=== PATIENT | male | born 1955 | race Two or more races ===

== ENCOUNTER 2017-05-25 13:28 | Emergency (ER) | payer OTHER ==
[~2017-05-25] VITALS: Ht 170.2 cm; Wt 79.4 kg
[2017-05-25 13:40] VITALS: BP 117/71
[2017-05-25 14:30] LABS: BASOPHILS % (AUTO) 0.3 % (0.0-2.0); LYMPHOCYTES % (AUTO) 9.9 % (20.0-45.0); MEAN CORPUSCULAR HEMOGLOBIN 31.6 PG (27.0-31.0); MEAN CORPUSCULAR HGB CONC 33.8 G/DL (32.0-36.0); MEAN CORPUSCULAR VOLUME 93 FL (80-99); MONOCYTES % (AUTO) 6.9 % (1.0-10.0); NEUTROPHILS % (AUTO) 82.8 % (45.0-75.0); PLATELET COUNT 236 K/UL (150-450); RED BLOOD COUNT 5.38 M/UL (4.70-6.10); RED CELL DISTRIBUTION WIDTH 11.3 % (11.6-14.8); WHITE BLOOD COUNT 13.9 K/UL (4.8-10.8)
[2017-05-25 14:37] LABS: PROTHROMBIN TIME 10.6 SEC (9.30-11.50)
[2017-05-25 14:41] LABS: APPEARANCE,URINE CLEAR; KETONES,URINE NEGATIVE (NEGATIVE); LEUKOCYTE ESTERASE ,URINE NEGATIVE (NEGATIVE); NITRITE,URINE NEGATIVE (NEGATIVE); PH,URINE 6.5 (4.5-8.0); PROTEIN,URINE NEGATIVE (NEGATIVE); UROBILINOGEN,URINE NORMAL MG/DL (0.0-1.0)
[2017-05-25 14:42] LABS: ANION GAP 6 mmol/L (5-15); CALCIUM 8.9 MG/DL (8.5-10.1); CARBON DIOXIDE 30 MMOL/L (21-32); CHLORIDE 102 MMOL/L (98-107); CREATININE 1.3 MG/DL (0.55-1.30); GLOMERULAR FILTRATION RATE 55.9 mL/min (>60); POTASSIUM 3.8 MMOL/L (3.5-5.1); SODIUM 138 MMOL/L (136-145)
[2017-05-25 14:48] LABS: ALANINE AMINOTRANSFERASE 26 U/L (12-78); ALBUMIN/GLOBULIN RATIO 0.9 (1.0-2.7); ASPARTATE AMINO TRANSFERASE 23 U/L (15-37); LIPASE 71 U/L (73-393); TOTAL PROTEIN 7.3 G/DL (6.4-8.2)
[2017-05-25 14:51] LABS: BACTERIA,URINE OCCASIONAL /HPF; SQUAMOUS EPITHELIAL CELL,UR OCCASIONAL /LPF (NONE/OCC); WBC,URINE 0-2 /HPF (0 - 0)
--- NOTE | 2017-05-25 15:22 | Diagnostic Imaging Report ---
Indication: PAIN abdominal pain, nausea vomiting for a few days Technique: Spiral acquisitions obtained through the abdomen and pelvis. No oral contrast utilized, per emergency room physician request No IV contrast utilized, due to history of prior contrast reaction. Multiplanar Reconstructions were generated. Total dose length product 841 mGycm. CTDIvol(s) 13 mGy. Dose reduction achieved using automated exposure control Comparison: None Findings: There is a 6 x 7 mm calculus in the distal left ureter about a centimeter proximal to the ureterovesical junction. There is resultant mild left hydroureter, moderate left hydronephrosis. There is perinephric fat stranding. No intrarenal calculi are demonstrated. Right renal or calculi or right hydronephrosis or hydroureter demonstrated. Lack of IV contrast limits assessment of the renal parenchyma. No gross renal parenchymal mass or cyst demonstrated. The bladder wall appears somewhat thickened, although this could be an artifact of under distention. Lack of IV contrast limits assessment of the other solid organs. The liver, gallbladder, bile ducts, pancreas, spleen, adrenals are unremarkable. No retroperitoneal or mesenteric mass or adenopathy. No pelvic mass or adenopathy. Normal appendix. Metallic foreign body appears attached to the wall of the transverse colon, could be ingested or could represent an endoscopic clips. No evidence of diverticulosis or diverticulitis. No small bowel distention or small bowel wall thickening. No free or loculated intraperitoneal air or fluid is evident. The included lung bases demonstrate basilar atelectatic changes. The bones are unremarkable. Impression: Positive for 6 x 7 mm distal left ureteral calculus. Resultant hydroureter, hydronephrosis, and perinephric fat stranding Equivocal bladder wall thickening, likely an artifact of under distention but if real could indicate cystitis Transverse colon metallic foreign body, possibly an endoscopic clip versus ingested foreign body The CT scanner at [facility] is accredited by the [employer] and the scans are performed using protocols designed to limit radiation exposure to as low as reasonably achievable to attain images of sufficient resolution adequate for diagnostic evaluation.
[2017-05-25] MEDS ORDERED: cefTRIAXone 1 GM in NS 55 ML IVPB ONE (15:45)
[2017-05-25] MEDS ORDERED: Morphine Sulfate 4mg/ml Inj IVP ONE (15:45)
--- NOTE | 2017-05-25 18:11 | Emergency Room Report ---
History of Present Illness General Chief Complaint: Vomiting Source: Patient, Family Member Present Illness HPI The patient is a 62-year-old male presenting for abdominal pain, nausea, and vomiting. He states that symptoms began approximately 2 weeks prior and have been on and off. Pain is an 8/10 sharp sensation primarily to the left lower abdomen. Occasionally radiates to left lower back. No known provoking or relieving factors. He admits to history of prostate cancer with prostatectomy one year prior. No known complications. He denies any other symptoms including fever, chills, constipation, diarrhea, CP , SOB Allergies: Coded Allergies: IODINE (Verified Allergy, Severe, Hives, 05/25/17) Patient History Past Medical History: see triage record Past Surgical History: other - prostatectomy Pertinent Family History: none Reviewed Nursing Documentation: PMH: Agreed, PSxH: Agreed Nursing Documentation-PMH Past Medical History: No History, Except For Hx Cancer: Yes - prostate with surgery Review of Systems All Other Systems: negative except mentioned in HPI Physical Exam Vital Signs Date Time Temp Pulse Resp B/P (MAP) Pulse Ox O2 Delivery O2 Flow Rate FiO2 05/25/17 13:31 97.9 64 18 117/71 98 Room Air Sp02 EP Interpretation: reviewed, normal General Appearance: no apparent distress, alert, GCS 15, non-toxic Head: normocephalic, atraumatic Eyes: bilateral eye normal inspection, bilateral eye PERRL ENT: hearing grossly normal, normal pharynx, no angioedema, normal voice Neck: full range of motion, supple/symm/no masses Respiratory: chest non-tender, lungs clear, normal breath sounds, speaking full sentences Cardiovascular #1: regular rate, rhythm, no edema Gastrointestinal: normal bowel sounds, soft, non-distended, no guarding, no rebound, tenderness - LLQ Rectal: deferred Genitourinary: normal inspection, CVA tenderness (L) Musculoskeletal: back normal, gait/station normal, normal range of motion, non- tender Neurologic: alert, oriented x3, responsive, motor strength/tone normal, sensory intact, speech normal Psychiatric: judgement/insight normal, memory normal, mood/affect normal, no suicidal/homicidal ideation Skin: normal color, no rash, warm/dry, well hydrated Medical Decision Making PA Attestation Dr. Green is my supervising physician. Patient management was discussed with my supervising physician Diagnostic Impression: Primary Impression: Hydronephrosis with renal calculous obstruction ER Course The patient is a 62-year-old male presenting for abdominal pain, nausea, and vomiting Differential diagnoses considered include but not limited to diverticulitis, kidney stone, gastritis, pancreatitis, appendicitis PE: Vitals WNL. NAD. Abdomen: Normal appearance. Non distended. No ecchymosis. Normal BS. TTP over the LLQ. No McBurney point tenderness. No guarding. L CVA tenderness CBC shows leukocytosis CMP: BUN of 25, Cr 1.3 UA: + for blood, no signs of infection 6x7mm distal L ureteral calculus with hydroureter, hydronephrosis, and perinephric fat stranding The patient is given IV fluids and pain medication and is feeling better. He will be admitted in stable but serious condition. I have spoken with Dr. Tae Chapman who has accepted the patient and he will be transferred to [facility]. Pt agrees with plan Laboratory Tests Test 05/25/17 14:00 05/25/17 14:30 White Blood Count 13.9 K/UL (4.8-10.8) H Red Blood Count 5.38 M/UL (4.70-6.10) Hemoglobin 17.0 G/DL (14.2-18.0) Hematocrit 50.2 % (42.0-52.0) Mean Corpuscular Volume 93 FL (80-99) Mean Corpuscular Hemoglobin 31.6 PG (27.0-31.0) H Mean Corpuscular Hemoglobin Concent 33.8 G/DL (32.0-36.0) Red Cell Distribution Width 11.3 % (11.6-14.8) L Platelet Count 236 K/UL (150-450) Mean Platelet Volume 8.0 FL (6.5-10.1) Neutrophils (%) (Auto) 82.8 % (45.0-75.0) H Lymphocytes (%) (Auto) 9.9 % (20.0-45.0) L Monocytes (%) (Auto) 6.9 % (1.0-10.0) Eosinophils (%) (Auto) 0.0 % (0.0-3.0) Basophils (%) (Auto) 0.3 % (0.0-2.0) Prothrombin Time 10.6 SEC (9.30-11.50) Prothrombin Time INR 1.0 (0.9-1.1) PTT 28 SEC (23-33) Sodium Level 138 MMOL/L (136-145) Potassium Level 3.8 MMOL/L (3.5-5.1) Chloride Level 102 MMOL/L (98-107) Carbon Dioxide Level 30 MMOL/L (21-32) Anion Gap 6 mmol/L (5-15) Blood Urea Nitrogen 25 mg/dL (7-18) H Creatinine 1.3 MG/DL (0.55-1.30) Estimate Glomerular Filtration Rate 55.9 mL/min (>60) Glucose Level 107 MG/DL (74-106) H Calcium Level 8.9 MG/DL (8.5-10.1) Total Bilirubin 0.8 MG/DL (0.2-1.0) Aspartate Amino Transferase (AST) 23 U/L (15-37) Alanine Aminotransferase (ALT) 26 U/L (12-78) Alkaline Phosphatase 107 U/L (46-116) Total Protein 7.3 G/DL (6.4-8.2) Albumin 3.5 G/DL (3.4-5.0) Globulin 3.8 g/dL Albumin/Globulin Ratio 0.9 (1.0-2.7) L Lipase 71 U/L (73-393) L Urine Color Pale yellow Urine Appearance Clear Urine pH 6.5 (4.5-8.0) Urine Specific [place] 1.005 (1.005-1.035) Urine Protein Negative (NEGATIVE) Urine Glucose (UA) Negative (NEGATIVE) Urine Ketones Negative (NEGATIVE) Urine Occult Blood 3+ (NEGATIVE) H Urine Nitrite Negative (NEGATIVE) Urine Bilirubin Negative (NEGATIVE) Urine Urobilinogen Normal MG/DL (0.0-1.0) Urine Leukocyte Esterase Negative (NEGATIVE) Urine RBC 2-4 /HPF (0 - 0) H Urine WBC 0-2 /HPF (0 - 0) Urine Squamous Epithelial Cells Occasional /LPF Urine Bacteria Occasional /HPF (NONE) Lab Results Impression CBC shows leukocytosis CMP: BUN of 25, Cr 1.3 UA: + for blood, no signs of infection CT/MRI/US Diagnostic Results CT/MRI/US Diagnostic Results : Imaging Test Ordered: CT abd/pelvis Impression 6x7mm distal L ureteral calculus with hydroureter, hydronephrosis, and perinephric fat stranding Last Vital Signs Date Time Temp Pulse Resp B/P (MAP) Pulse Ox O2 Delivery O2 Flow Rate FiO2 05/25/17 16:54 97.9 05/25/17 13:40 73 18 117/71 98 Room Air Status: improved Disposition: XFER SHT-TRM HOSP Condition: Serious Scripts No Active Prescriptions or Reported Meds Referrals: [facility],REFERRING (PCP) FITO WAKEFIELD May 25, 2017 18:11
[2017-05-25 18:57] VITALS: BP 118/70
[2017-05-25 19:47] VITALS: BP 117/77
[2017-05-25 20:50] VITALS: BP 117/77
== END 2017-05-25 20:50 | disposition short-term general hospital (02) ==
LOC: EMR 14:05
DX: N13.2 Hydronephrosis with renal and ureteral calculous obstruction (principal); Z85.46 Personal history of malignant neoplasm of prostate; Z90.79 Acquired absence of other genital organ(s); Z91.041 Radiographic dye allergy status
CPT/HCPCS: 36415; 74176; 80053; 81003; 83690; 85025; 85610; 85730; 96361; 96365; 96366; 99285; J0696; J2270; J2405

== ENCOUNTER 2017-06-24 17:49 | Emergency (ER) | payer OTHER ==
[~2017-06-24] VITALS: Ht 170.2 cm; Wt 79.4 kg
[2017-06-24] MEDS ORDERED: CIPROFLOXACIN750 MG ORAL (18:02)
[2017-06-24] MEDS ORDERED: Tetanus/Diptheria/Pertussis Vaccine 0.5ml Syr IM ONE (18:15)
[2017-06-24] MEDS ORDERED: Lidocaine 1% MPF 10mg/ml 5ml INJ ONE (18:30)
[2017-06-24] MEDS ORDERED: Bacitracin Oint UD TOPIC ONE (18:30)
[2017-06-24] MEDS ORDERED: BACITRACIN-P28.35 GM TP (18:34)
[2017-06-24] MEDS ORDERED: CEPHALEXIN500 MG ORAL (18:34)
--- NOTE | 2017-06-24 18:34 | Emergency Room Report ---
History of Present Illness General Chief Complaint: Laceration Source: Patient, Family Member Present Illness HPI 62 YO Male presents to the ED c/o laceration to proximal left middle finger x 1 day, sustained this afternoon after falling onto sharp piece of metal. Last tetanus vaccination is unknown he estimates over 10 years. Patient denies taking blood thinning medications. Patient is pain is 0/10 in severity at this time he states that he has been able to control bleeding at this time. Denies numbness tingling or loss of sensation or gross motor movements of the extremities, incontinence of bowel or bladder. Denies CP, Palpitations, LOC, AMS , dizziness, Changes in Vision, Allergies: Coded Allergies: IODINE (Verified Allergy, Severe, Hives, 05/25/17) Patient History Past Medical History: see triage record Past Surgical History: none Pertinent Family History: none Reviewed Nursing Documentation: PMH: Agreed, PSxH: Agreed Nursing Documentation-PMH Hx Cancer: Yes - Prostate cancer with surgery in 2016. Review of Systems All Other Systems: negative except mentioned in HPI Physical Exam Vital Signs Date Time Temp Pulse Resp B/P (MAP) Pulse Ox O2 Delivery O2 Flow Rate FiO2 06/24/17 17:56 97.9 66 17 131/82 96 Room Air Sp02 EP Interpretation: reviewed, normal General Appearance: no apparent distress, alert, GCS 15, non-toxic Head: normocephalic, atraumatic Eyes: bilateral eye normal inspection, bilateral eye PERRL ENT: hearing grossly normal, normal voice Neck: full range of motion Respiratory: lungs clear, normal breath sounds, speaking full sentences Cardiovascular #1: regular rate, rhythm, normal capillary refill Musculoskeletal: back normal, gait/station normal, normal range of motion, non- tender Neurologic: alert, oriented x3, responsive, motor strength/tone normal, sensory intact, speech normal Psychiatric: memory normal Skin: normal color, no rash, warm/dry, well hydrated, laceration - linear proximal left middle finger laceration approx 3 cm in length- no obvious fb. Procedures Laceration/Wound Repair Laceration/Wound Repair : Consent: Verbal Wound Location: upper extremity - proximal left middle finger Wound's Depth, Shape: linear Wound Length (cm): 3 Wound Explored: clean Irrigated w/ Saline (ccs): 500 Betadine Prep?: Yes Anesthesia: 1% Lidocaine Volume Anesthetic (ccs): 5 Wound Repaired With: sutures Suture Size/Type: 4:0 Number of Sutures: 4 Layer Closure?: No Sterile Dressing Applied?: Yes Splint Applied?: Yes Type of Splint Applied: finger splint Sling Applied?: No Patient Tolerated: Well Complications: None Medical Decision Making PA Attestation Dr. tristan is my supervising Physician whom patient management has been discussed with. Diagnostic Impression: Primary Impression: Laceration ER Course Pt. presents to the ED c/o laceration to proximal left middle finger x 1 day, sustained this afternoon after falling onto sharp piece of metal. Last tetanus vaccination is unknown he estimates over 10 years. Patient denies taking blood thinning medications. Patient is pain is 0/10 in severity at this time he states that he has been able to control bleeding at this time. Denies numbness tingling or loss of sensation or gross motor movements of the extremities, incontinence of bowel or bladder. Denies CP, Palpitations, LOC, AMS, dizziness, Changes in Vision, Sensation, paresthesias, or a sudden severe headache. Ddx considered but are not limited to laceration, tendon injury, cellulitis, amputation Vital signs: are WNL, pt. is afebrile H&PE are most consistent with: linear proximal left middle finger laceration approx 3 cm in length- no obvious fb. ORDERS: none required at this time, the diagnosis is clinical ED INTERVENTIONS: -Tetanus vaccine was administered as pt. vaccination status was unknown. - The wound was copiously irrigated with normal saline, and explored for foreign body for which no FB was found. - pt. is anesthetized with 1%lidocaine- 5 cc - The wound was approximated and closed using 4 interrupted 4.0 Prolene sutures. -Bacitracin and sterile dressing is applied. - Left middle finger Splint applied by cytopathology technologist. Pt. remains neurovascularly intact. Discussed with patient: That we make every effort to approximate the laceration as best as we can so that scarring will be as cosmetically pleasing as possible with our limited cosmetic skill set in the Emergency dept. Regardless of our best efforts there will be scarring after laceration repair. The extent of scarring is unknown at this time. DISCHARGE: At this time pt. is stable for d/c to home. Will provide printed patient care instructions, and any necessary prescriptions. Care plan and follow up instructions have been discussed with the patient prior to discharge. Last Vital Signs Date Time Temp Pulse Resp B/P (MAP) Pulse Ox O2 Delivery O2 Flow Rate FiO2 06/24/17 17:56 97.9 66 17 131/82 96 Room Air Disposition: HOME, SELF-CARE Condition: Stable Scripts Bacitracin/Polymyxin B Sulfate (BACITRACIN-POLYMYXIN OINTMENT) 28.35 Gm Oint...g. 1 APPLIC TP BID, #28.3 GM Prov: Jannet Rivas 06/24/17 Cephalexin* (KEFLEX*) 500 Mg Capsule 500 MG ORAL EVERY 12 HOURS for 7 Days, #14 CAP 0 Refills Prov: Jannet Rivas 06/24/17 Patient Instructions: Laceration Care, Adult Additional Instructions: Take medications as directed. * SUTURE REMOVAL IN 10 Days* Follow up with a Primary Care Provider in 3-5 days, even if your symptoms have resolved. --Please review list of primary care clinics, if you do not already have a primary care provider Return sooner to ED if new symptoms occur, or current symptoms become worse. - Please note that this Emergency Department Report was dictated using [employer] Systemsm[employer]iple resaw operator technology software, occasionally this can lead to erroneous entry secondary to interpretation by the dictation equipment. Jannet Rivas Jun 24, 2017 18:34
[2017-06-24 19:36] VITALS: BP 131/82
== END 2017-06-24 19:22 | disposition home or self-care (01) ==
LOC: EMR 18:53
DX: S61.213A Laceration without foreign body of left middle finger without damage to nail, initial encounter (principal); W45.8XXA Other foreign body or object entering through skin, initial encounter; Y92.89 Other specified places as the place of occurrence of the external cause; Z23 Encounter for immunization; Z85.46 Personal history of malignant neoplasm of prostate
CPT/HCPCS: 12002; 90471; 90715; 99283; Z7502

== ENCOUNTER 2017-11-30 16:30 | Emergency (ER) | payer OTHER ==
[~2017-11-30] VITALS: Ht 167.6 cm; Wt 79.8 kg
[~2017-11-30 16:30] MED LIST: BACITRACIN-P28.35 GM TP; CEPHALEXIN500 MG ORAL; CIPROFLOXACIN750 MG ORAL
[2017-11-30 17:24] VITALS: BP 119/78
--- NOTE | 2017-11-30 17:39 | Emergency Room Report ---
History of Present Illness General Chief Complaint: Upper Respiratory Illness Source: Patient Present Illness HPI 62-year-old male presents to the emergency department complaining of persistent dry cough times one week with sore throat 4 days he denies fevers, chills, headaches. Patient also reports in the mornings he has significant phlegm that resolves after coughing it out. Patient reports some intermittent nasal congestion. Denies ear pain, high fevers, lethargy, neck pain/stiffness, irritability, photophobia dehydration, N/V/D. Denies Cp, Palpitations, LOC, AMS , seizures, paresthesias, or changes in Hearing or vision, no Sudden severe CORTÉS. Denies hx of smoking, asthma or COPD. Allergies: Coded Allergies: IODINE (Verified Allergy, Severe, Hives, 05/25/17) Patient History Past Medical History: see triage record Past Surgical History: none Pertinent Family History: none Reviewed Nursing Documentation: PMH: Agreed; PSxH: Agreed Nursing Documentation-PMH Past Medical History: No History, Except For Hx Cancer: Yes - Prostate cancer with surgery in 2016. Review of Systems All Other Systems: negative except mentioned in HPI Physical Exam Vital Signs Date Time Temp Pulse Resp B/P (MAP) Pulse Ox O2 Delivery O2 Flow Rate FiO2 11/30/17 16:45 98.7 63 20 119/78 94 Room Air 98.8 Sp02 EP Interpretation: reviewed, normal General Appearance: no apparent distress, alert, GCS 15, non-toxic Head: normocephalic, atraumatic ENT: hearing grossly normal, normal voice, TMs + canals normal, uvula midline, moist mucus membranes, pharyngeal erythema, other - no tonsillar swelling or exudates. Neck: full range of motion, no meningismus Respiratory: chest non-tender, lungs clear, normal breath sounds, no rhonchi, no respiratory distress, no wheezing, speaking full sentences Cardiovascular #1: regular rate, rhythm, no edema Gastrointestinal: non tender Musculoskeletal: back normal, gait/station normal, normal range of motion, non- tender Neurologic: alert, oriented x3, responsive, motor strength/tone normal, sensory intact, speech normal, grossly normal Psychiatric: judgement/insight normal Skin: normal color, no rash, warm/dry, well hydrated Lymphatic: no adenopathy Medical Decision Making PA Attestation Dr. Abdi is my supervising Physician whom patient management has been discussed with. Diagnostic Impression: Primary Impression: Upper respiratory infection Qualified Codes: J06.9 - Acute upper respiratory infection, unspecified Additional Impression: Pharyngitis, acute Qualified Codes: J02.9 - Acute pharyngitis, unspecified ER Course 62-year-old male presents to the emergency department complaining of persistent dry cough times one week with sore throat 4 days he denies fevers, chills, headaches. Patient also reports in the mornings he has significant phlegm that resolves after coughing it out. Patient reports some intermittent nasal congestion. Denies , ear pain, high fevers, lethargy, neck pain/stiffness, irritability, photophobia dehydration, N/V/D. Denies Cp, Palpitations, LOC, AMS , seizures, paresthesias, or changes in Hearing or vision, no Sudden severe CORTÉS. Denies hx of smoking, asthma or COPD. Ddx considered but are not limited to URI, pneumonia, PE, strep pharyngitis, meningitis. Vital signs: Pt. is afebrile, the remaining VS are WNL H&PE are most consistent with URI- no meningeal signs, no evidence of bacterial infection at this time. pharyngitis most likely secondary to PND. ORDERS: none required at this time, the diagnosis is clinical ED INTERVENTIONS: None required at this time. --PT. EDUCATION: Discussed antibiotic resistance with inappropriate prescribing of antibiotics for viral illnesses. Discussed signs and symptoms to indicate viral illness versus bacterial illness. DISCHARGE: At this time pt. is stable for d/c to home. Will provide printed patient care instructions, and any necessary prescriptions. Care plan and follow up instructions have been discussed with the patient prior to discharge. Last Vital Signs Date Time Temp Pulse Resp B/P (MAP) Pulse Ox O2 Delivery O2 Flow Rate FiO2 11/30/17 17:24 63 20 Room Air 11/30/17 17:24 98.8 119/78 94 98.8 Disposition: HOME, SELF-CARE Condition: Stable Scripts Acetaminophen* (TYLENOL EXTRA STRENGTH*) 500 Mg Tablet 500 MG ORAL Q6H, #20 TAB 0 Refills Prov: Jannet Rivas P.A. 11/30/17 Loratadine/Pseudoephedrine (CLARITIN-D 24 HOUR TABLET) 1 Each Tab.er.24h 1 TAB PO DAILY for 7 Days, #7 TAB Prov: Jannet Rivas 11/30/17 Guaifenesin (Guaifenesin) 1,200 Mg Tab.er.12h 1200 MG PO BID, #20 TAB Prov: Jannet Rivas 11/30/17 Codeine/Promethazine Hcl* (PROMETHAZINE-CODEINE SYRUP*) 118 Ml Syrup 5 ML ORAL Q6H PRN for For Cough, #120 ML 0 Refills Prov: Jannet Rivas 11/30/17 Patient Instructions: Upper Respiratory Infection, Adult Additional Instructions: Take medications as directed. Follow up with a Primary Care Provider in 3-5 days, even if your symptoms have resolved. --Please review list of primary care clinics, if you do not already have a primary care provider Return sooner to ED if new symptoms occur, or current symptoms become worse. Do not drink alcohol, drive, or operate heavy machinery while taking Cough Syrup as this may cause drowsiness. - Please note that this Emergency Department Report was dictated using [employer]er in technology software, occasionally this can lead to erroneous entry secondary to interpretation by the dictation equipment. Jannet Rivas November 30, 2017 17:39
[2017-11-30] MEDS ORDERED: CLARITIN-D 241 EACH PO (17:53)
[2017-11-30] MEDS ORDERED: GUAIFENESIN1200 MG PO (17:53)
[2017-11-30] MEDS ORDERED: PROMETHAZINE-C118 M1 ORAL (17:53)
[2017-11-30] MEDS ORDERED: TYLENOL EXTRA500 MG ORAL (17:53)
[2017-11-30 18:00] VITALS: BP 119/78
== END 2017-11-30 18:05 | disposition home or self-care (01) ==
LOC: EMR 18:00
DX: J06.9 Acute upper respiratory infection, unspecified (principal); J02.8 Acute pharyngitis due to other specified organisms; B97.89 Other viral agents as the cause of diseases classified elsewhere; Z85.46 Personal history of malignant neoplasm of prostate
CPT/HCPCS: 99284

== ENCOUNTER 2018-10-16 10:11 | Emergency (ER) | payer OTHER ==
[~2018-10-16] VITALS: Ht 167.6 cm; Wt 83.9 kg
[~2018-10-16 10:11] MED LIST changes: +CLARITIN-D 241 EACH PO; +GUAIFENESIN1200 MG PO; +PROMETHAZINE-C118 M1 ORAL; +TYLENOL EXTRA500 MG ORAL
[2018-10-16 10:25] VITALS: BP 126/80
--- NOTE | 2018-10-16 10:26 | NUR ---
ED Nurse Note: Patient walked in accompanied by son c/o a productive cough x 2 weeks. Denies any pain at this time. Pt is A&O x4, V/S stable with no s/s of acute distress noted at this time. Will continue to monitor the pt.
--- NOTE | 2018-10-16 10:44 | Emergency Room Report ---
History of Present Illness General Chief Complaint: Upper Respiratory Illness Source: Patient, Medical Record Present Illness HPI Patient presents with 2 weeks of cough. He has a discharge from his nose also. He feels phlegm deeper in his throat but states that the phlegm that is producing from his nose and also from his lungs is clear. Denies any chest pain. No fever or chills. In the past these had upper respiratory symptoms with sore throat however the upper part of his pharynx is nontender at this time. This began when he was cutting through a pipe below a sink which may have been a drainage pipe and was exposed to dust. This happened 2 weeks ago. No history of prior allergies. No skin rashes. No headache. Allergies: Coded Allergies: IODINE (Verified Allergy, Severe, Hives, 05/25/17) Patient History Past Medical History: see triage record Social History: Denies: smoking - distant Social History Narrative With son Reviewed Nursing Documentation: PMH: Agreed; PSxH: Agreed Nursing Documentation-PMH Hx Cancer: Yes - Prostate cancer with surgery in 2016. Review of Systems All Other Systems: negative except mentioned in HPI Physical Exam Vital Signs Date Time Temp Pulse Resp B/P (MAP) Pulse Ox O2 Delivery O2 Flow Rate FiO2 10/16/18 10:19 97.9 54 18 126/80 95 Room Air Sp02 EP Interpretation: reviewed, normal General Appearance: well appearing, no apparent distress, GCS 15 Head: normocephalic, atraumatic Eyes: bilateral eye normal inspection, bilateral eye PERRL ENT: hearing grossly normal, normal pharynx, no angioedema, normal voice, moist mucus membranes, other - Minimal nasal congestion without erythema Neck: full range of motion, supple Respiratory: normal inspection, chest non-tender, lungs clear, normal breath sounds, no respiratory distress, speaking full sentences Cardiovascular #1: regular rate, rhythm, no edema Cardiovascular #2: 2+ radial (R) Gastrointestinal: normal inspection Genitourinary: no CVA tenderness Musculoskeletal: digits/nails normal, gait/station normal, normal range of motion, no calf tenderness Neurologic: alert, oriented x3, normal gait, grossly normal Psychiatric: mood/affect normal Skin: no rash Medical Decision Making Diagnostic Impression: Primary Impression: Dyspnea Qualified Codes: R06.09 - Other forms of dyspnea ER Course Patient stable for outpatient observation and treatment. Patient presents with respiratory difficulty and increased mucoid secretions after being exposed to dust cutting through drainage pipe. Differential includes bronchospasm, bronchitis, pneumonia, allergic reaction, sinusitis amongst others. Doubt infectious etiology as there is no fever or purulent sputum. Evaluation will be with EKG and chest x-ray. The patient will be given a treatment breathing treatment. EKG normal sinus rhythm without any injury. Chest x-ray no infiltrates. The patient has no improvement after breathing treatment. Discussed with patient treatment plan and need for follow-up. Patient stable for outpatient observation and treatment. EKG Diagnostic Results Rate: normal Rhythm: NSR ST Segments: no acute changes Rhythm Strip Diag. Results EP Interpretation: yes Rhythm: NSR, no PVC's, no ectopy Chest X-Ray Diagnostic Results Chest X-Ray Diagnostic Results : Chest X-Ray Ordered: Yes # of Views/Limited/Complete: 1 View Indication: Other EP Interpretation: Yes Interpretation: no consolidation, no effusion, no pneumothorax Impression: No acute disease Electronically Signed by: Electronically signed by Jacob Lyons MD Last Vital Signs Date Time Temp Pulse Resp B/P (MAP) Pulse Ox O2 Delivery O2 Flow Rate FiO2 10/16/18 12:07 97.9 56 18 120/67 100 Room Air 10/16/18 11:11 21 Status: unchanged Disposition: HOME, SELF-CARE Condition: Stable Scripts Chlorpheniramine Maleate (CHLOR-TRIMETON) 4 Mg Tablet 4 MG PO Q6HR PRN for congestion, #14 TAB Prov: Jacob Lyons MD 10/16/18 Prednisone* (PREDNISONE*) 20 Mg Tablet 20 MG ORAL DAILY, #5 TAB Prov: Jacob Lyons MD 10/16/18 Jacob Lyons MD Oct 16, 2018 10:44
[2018-10-16] MEDS ORDERED: Albuterol ud Inhalation HHN ONE (10:45)
--- NOTE | 2018-10-16 10:45 | NUR ---
ED Nurse Note: RT CALLED FOR BREATHING TX.
--- NOTE | 2018-10-16 10:54 | NUR ---
ED Nurse Note: XRAY AT BEDSIDE.
--- NOTE | 2018-10-16 10:54 | NUR ---
ED Nurse Note: RT AT BEDSIDE
--- NOTE | 2018-10-16 11:13 | Diagnostic Imaging Report ---
INDICATION: Cough COMPARISON: None FINDINGS: Single frontal view demonstrates a normal cardiomediastinal silhouette. The lungs are clear. No pleural effusions. The visualized osseous structures are within normal limits. IMPRESSION: No acute cardiopulmonary disease.
[2018-10-16] MEDS ORDERED: PREDNISONE20 MG ORAL (11:59)
[2018-10-16] MEDS ORDERED: CHLOR-TRIMETON4 MG PO (11:59)
[2018-10-16 12:07] VITALS: BP 120/67
--- NOTE | 2018-10-16 12:08 | NUR ---
ED Nurse Note: pt cleared to be d/c per ERMD, pt discharge and aftercare instruction provided w/ prescription, pt education done via discussion and handout, pt advised to follow up with pcp or return to ed, pt verbalized understanding and agrees with plan, vss, resp even and unlabored on RA, ambulatory w/ steady gait, left w/ all belongings, id band removed.
--- NOTE | 2018-10-18 19:27 | Cardiology Report ---
APPROVED REPORT EKG Measurement Heart [id number] [place] [id number] [id number] Sinus bradycardia Otherwise normal ECG
== END 2018-10-16 12:11 | disposition home or self-care (01) ==
LOC: EMR 10:30
DX: R06.09 Other forms of dyspnea (principal); Z91.041 Radiographic dye allergy status
CPT/HCPCS: 71045; 93005; 94640; 94664; 99284; J7512